=== PATIENT | male | born 1980 | race African-American/Black ===

== ENCOUNTER 2017-05-14 14:01 | Emergency (ER) | payer SELFPAY ==
[~2017-05-14] VITALS: Ht 162.6 cm; Wt 66.7 kg
[2017-05-14 14:27] VITALS: Ht 162.6 cm; Wt 66.7 kg
[2017-05-14 18:09] VITALS: BP 150/72
== END 2017-05-14 18:09 | disposition home or self-care (01) ==
LOC: ED 14:01
DX: R21 Rash and other nonspecific skin eruption (principal); I10 Essential (primary) hypertension; J45.909 Unspecified asthma, uncomplicated; Z91.018 Allergy to other foods
CPT/HCPCS: J7512; Q0163